=== PATIENT | female | born 1985 | race Caucasian/White ===

== ENCOUNTER 2016-05-13 22:49 | Emergency (ER) | payer OTHER ==
[~2016-05-13] VITALS: Ht 154.9 cm; Wt 60.8 kg
[~2016-05-13 22:49] MED LIST: BACTRIM DS TAB1 EACH PO; CIPRO 500MG TA500 MG PO; LYSTEDA650 MG PO; PERCOCET 325 MG1 TA2 PO
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
[2016-05-14 00:21] LABS: ABSOLUTE BASOPHIL COUNT 0 /CUMM (0.0-0.2); ABSOLUTE EOSINOPHIL COUNT 0 /CUMM (0.0-0.7); ABSOLUTE GRANULOCYTE CT 6.3 /CUMM (1.4-6.5); ABSOLUTE LYMPH COUNT 1.9 /CUMM (1.2-3.4); ABSOLUTE MONOCYTE COUNT 0.6 /CUMM (0.10-0.60); BASOPHIL % 0.3 % (0.0-2.0); EOSINOPHIL % 0.5 % (0-5); GRANULOCYTE % 70.8 % (42.2-75.2); HEMATOCRIT 33.9 % (37-47); MEAN CORPUSCULAR HGB 31.3 PG (27.0-31.0); MEAN CORPUSCULAR HGB CONC 35.1 G/DL (33.0-37.0); MEAN CORPUSCULAR VOLUME 89.3 FL (81.0-99.0); MEAN PLATELET VOLUME 9.2 FL (7.4-10.4); PLATELET COUNT 180 /CUMM (130-400); RBC DISTRIBUTION WIDTH 15.1 % (11.5-14.5); WHITE BLOOD CELL COUNT 8.8 /CUMM (4.8-10.8)
[2016-05-14 01:44] VITALS: BP 117/61
== END 2016-05-14 02:42 ==
LOC: ERH 22:49
PROVIDERS: Physician Assistant
DX: O99.89 Other specified diseases and conditions complicating pregnancy, childbirth and the puerperium (principal); S39.91XA Unspecified injury of abdomen, initial encounter; Z3A.22 22 weeks gestation of pregnancy; W51.XXXA Accidental striking against or bumped into by another person, initial encounter; Y93.89 Activity, other specified; Y92.9 Unspecified place or not applicable
CPT/HCPCS: 96374; J0131

== ENCOUNTER 2016-07-30 11:29 | Observation (INO) | payer OTHER ==
[2016-07-30 12:39] LABS: ABSOLUTE BASOPHIL COUNT 0 /CUMM (0.0-0.2); ABSOLUTE EOSINOPHIL COUNT 0 /CUMM (0.0-0.7); ABSOLUTE GRANULOCYTE CT 5.6 /CUMM (1.4-6.5); ABSOLUTE LYMPH COUNT 1.5 /CUMM (1.2-3.4); ABSOLUTE MONOCYTE COUNT 0.7 /CUMM (0.10-0.60); BASOPHIL % 0.3 % (0.0-2.0); EOSINOPHIL % 0.4 % (0-5); GRANULOCYTE % 71.4 % (42.2-75.2); HEMATOCRIT 33.1 % (37-47); MEAN CORPUSCULAR HGB 31.2 PG (27.0-31.0); MEAN CORPUSCULAR HGB CONC 34.3 G/DL (33.0-37.0); MEAN CORPUSCULAR VOLUME 90.9 FL (81.0-99.0); MEAN PLATELET VOLUME 8.9 FL (7.4-10.4); PLATELET COUNT 119 /CUMM (130-400); RED BLOOD CELL CT 3.64 /CUMM (4.20-5.40); WHITE BLOOD CELL COUNT 7.9 /CUMM (4.8-10.8)
== END 2016-07-30 17:30 ==
LOC: CBCO 11:29 → GNO 15:43
PROVIDERS: ADMIT Obstetrics & Gynecology
DX: O47.03 False labor before 37 completed weeks of gestation, third trimester (principal); Z3A.33 33 weeks gestation of pregnancy
CPT/HCPCS: 81003; 96360; 96361; G0378; G0463

== ENCOUNTER 2016-09-08 09:59 | Inpatient (IN) | payer OTHER ==
[~2016-09-08] VITALS: Ht 154.9 cm; Wt 69.4 kg
[2016-09-08 11:46] LABS: ABSOLUTE BASOPHIL COUNT 0 /CUMM (0.0-0.2); ABSOLUTE EOSINOPHIL COUNT 0.1 /CUMM (0.0-0.7); ABSOLUTE GRANULOCYTE CT 5.8 /CUMM (1.4-6.5); ABSOLUTE LYMPH COUNT 1.7 /CUMM (1.2-3.4); ABSOLUTE MONOCYTE COUNT 0.4 /CUMM (0.10-0.60); BASOPHIL % 0.5 % (0.0-2.0); EOSINOPHIL % 0.7 % (0-5); GRANULOCYTE % 72.7 % (42.2-75.2); HEMATOCRIT 35.2 % (37-47); MEAN CORPUSCULAR HGB 30.7 PG (27.0-31.0); MEAN CORPUSCULAR HGB CONC 33.9 G/DL (33.0-37.0); MEAN CORPUSCULAR VOLUME 90.4 FL (81.0-99.0); MEAN PLATELET VOLUME 10.4 FL (7.4-10.4); RBC DISTRIBUTION WIDTH 15.2 % (11.5-14.5)
[2016-09-08 13:10] LABS: PLATELET COUNT 136 /CUMM (130-400); WHITE BLOOD CELL COUNT 7.9 /CUMM (4.8-10.8)
--- NOTE | 2016-09-08 19:02 | History & Physical ---
General Information and HPI MD Statement: I have seen and personally examined KANIKA SALAMANCA and documented this H&P. The patient is a 31 year old female at [39] weeks and [1] days gestation who presented with a chief complaint of [elective iol]. Source of Information: police History of Present Illness: 30yo lmp 12/09/15 edc 09/14/16 desires elective induction. care complete and remarkable for GBS colonization, mild gestational thrombocytopenia, discord in relationship and IVF conception. This pt does NOT have a history of gential herpes despite its recording in the office record; she occaisionally takes valtrex for cold sores. Allergies/Medications Home Med list Ciprofloxacin (Cipro) 500 MG TAB 1 TAB PO BID UTI OXYCODONE HCL/ACETAMINOPHEN (Percocet 5-325 MG Tablet) 325 MG/5 MG TAB 1-2 TAB PO Q4-6 PRN PRN PAIN Sulfamethoxazole/Trimethoprim (Bactrim Ds Tablet) 1 EACH TABLET 1 TAB PO BID INFECTION Tranexamic Acid (Lysteda) 650 MG TAB 2 TAB PO TID menorrhagia during menses Past History blender snuff History : 3 Para: 1 Last Menstrual Period: 12/08/2105 Estimated Delivery Date: 09/14/2016 Past blender snuff History: non-contributory Medical History Neurological: NONE EENT: NONE Cardiovascular: NONE Respiratory: NONE Gastrointestinal: NONE Hepatic: NONE Renal: NONE Musculoskeletal: NONE Psychiatric: anxiety Endocrine: NONE Blood Disorders: NONE Cancer(s): NONE 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 EENTM: Reports: no symptoms. Cardiovascular: Reports: no symptoms. Respiratory: Reports: no symptoms. GI: Reports: no symptoms. Genitourinary: Reports: no symptoms. Musculoskeletal: Reports: no symptoms. Skin: Reports: no symptoms. Neurological/Psychological: Reports: no symptoms. Hematologic/Endocrine: Reports: no symptoms. Immunologic/Allergic: Reports: no symptoms. All Other Systems: Reviewed and Negative Exam & Diagnostic Data Last 24 Hrs of Vital Signs/I&O Intake & Output 09/08 1600 09/08 0800 09/08 0000 Intake Total Output Total Balance Patient 153 lb Weight Obstetric Exam Wgt Gained During : 30 Pelvimetry: gynecoid Dilation (cm): 0 Effacement (%): 0 Station: -2 Membranes: intact Fluid: unknown Fundal Height (cm): 39 Multiple Gestation? No Contractions: rare #1 - FHR Baseline: 130 Category: 1 Estimated Weight: 7 Presentation: cephalic Patient for Induction? Yes Vargas Score Vargas Score Response Value Cervix Position: posterior 0 Cervix Consistency: soft 2 Cervix Effacement: 0-30% 0 Cervix Dilation: closed 0 Cervix Station: -2 1 Total 3 Physical Exam: HEENT: NCAT Chest: CTA CV: nl S1S2 Abd: gravid, cephalic, 7# LTCP Ext: no c/c/e Neuro: nonfocal Labs Blood Type & Rh: O pos Antibody Screen: neg Hct/Hgb & Platelets #1: 35//150 Hct/Hgb & Platelets #2: 34//143 Rubella: imm VDRL #1: nr VDRL #2: nr HbsAg: neg HIV #1: neg HIV #2 neg 1 Hr P Group B Strep: pos Initial Ultrasound: wnl Anatomy Ultrasound: wnl Ultrasound for EFW: 6# Genetic Testing: neg Last 24 Hrs of Labs/Pankaj: Laboratory Tests 09/08/16 1300: Urine Color YEL, Urine Clarity HAZY H, Urine pH 6.5, Ur Specific [place] 1.025, Urine Protein 30 H, Urine Ketones TRACE H, Urine Nitrite NEG, Urine Bilirubin NEG, Urine Urobilinogen 0.2, Ur Leukocyte Esterase NEG, Ur Microscopic SEDIMENT EXAMINED, Urine RBC RARE, Urine WBC RARE, Ur Epithelial Cells MANY H, Urine Bacteria MANY H, Urine Mucus MOD H, Urine Hemoglobin NEG, Urine Glucose 250 H 09/08/16 1038: Estimated GFR > 60, Uric Acid 2.6, AST 23, ALT 35, Lactate Dehydrogenase 422, CBC w Diff NO MAN DIFF REQ, RBC 3.90 L, MCV 90.4, MCH 30.7, RDW 15.2 H, MPV 10.4, Gran % 72.7, Lymphocytes % 21.4, Monocytes % 4.7, Eosinophils % 0.7, Basophils % 0.5, Absolute Granulocytes 5.8, Absolute Lymphocytes 1.7, Absolute Monocytes 0.4, Absolute Eosinophils 0.1, Absolute Basophils 0, PUBS MCHC 33.9 ITS Data ITS Data Unobtainable at this time Assessment/Plan Assessment/Plan: 39 week elective induction, poor vargas score misoprostil cervical ripening followed by pitocin incuction IV PCN for GBS prior to amniotomy As Ranked By This Provider Problem List: 1. Core Measures/Miscellaneous Venous Thromboembolism VTE Risk Factors: / VTE Contraindications: No Contraindications VTE Diagnosis: No Beta Jolie Is Beta Jolie a Home Med? No Antibiotics Is Patient on Antibiotics? No
[2016-09-09] MEDS ORDERED: PRENATABS RX T1 EACH PO (14:59)
== END 2016-09-09 15:15 | DRG 781 ==
LOC: GNO 09:59
PROVIDERS: ADMIT Obstetrics & Gynecology
PROC: 3E033VJ Introduction of Other Hormone into Peripheral Vein, Percutaneous Approach (ICD-10-PCS; principal; 2016-09-08)
DX: O99.113 Other diseases of the blood and blood-forming organs and certain disorders involving the immune mechanism complicating pregnancy, third trimester (principal); O99.820 Streptococcus B carrier state complicating pregnancy; D69.6 Thrombocytopenia, unspecified; Z3A.39 39 weeks gestation of pregnancy
CPT/HCPCS: GNOP; 81001; J7120